=== PATIENT | male | born 1955 | race Caucasian/White ===

== ENCOUNTER 2019-01-26 20:32 | Emergency (ER) | payer BC ==
[~2019-01-26] VITALS: Ht 182.8 cm; Wt 94.0 kg
[2019-01-26] MEDS ORDERED: KETOROLAC 30 MG/ML VIAL ONE (20:41)
[2019-01-26] MEDS ORDERED: ONDANSETRON 4 MG/2 ML (SDV) Z0FRAN ONE (20:41)
[2019-01-26] MEDS ORDERED: NS IV 1000 ML 1,000 ML ONE (20:41)
[2019-01-26] MEDS ORDERED: KETOROLAC 30 MG/ML VIAL IVP ONE (20:45)
[2019-01-26] MEDS ORDERED: NS IV 1000 ML 1,000 ML IV SCH (20:45)
[2019-01-26] MEDS ORDERED: ONDANSETRON 4 MG/2 ML (SDV) Z0FRAN IVP ONE ×2 (20:45→21:00)
--- NOTE | 2019-01-26 20:46 | ED Abdominal Pain ---
General Stated Complaint: ABD PAIN Source of Information: Patient Exam Limitations: No Limitations History of Present Illness Date Seen by Provider: Jan 26, 2019 Time Seen by Provider: 20:45 Initial Comments to ER with sudden onset left lower quadrant abdominal pain that began about 1-2 hours ago. Timing/Duration: 4-6 Hours Severity/Quality: Severe Location: Suprapubic Radiation: No Radiation Activities at Onset: None Associated Symptoms: Other Allergies and Home Medications Allergies Coded Allergies: No Known Drug Allergies (Unverified , 01/26/19) Patient Home Medication List Home Medication List Reviewed: Yes Review of Systems Review of Systems Constitutional: see HPI EENTM: No Symptoms Reported Respiratory: No Symptoms Reported Cardiovascular: No Symptoms Reported Gastrointestinal: See HPI, Abdominal Pain Genitourinary: No Symptoms Reported Musculoskeletal: no symptoms reported Skin: no symptoms reported Psychiatric/Neurological: No Symptoms Reported Endocrine: No Symptoms Reported Hematologic/Lymphatic: No Symptoms Reported Past Ccuagzl-Ngwkqv-Cmmczs Hx Patient Social History Recent Foreign Travel: No Contact w/Someone Who Travel: No Physical Exam Vital Signs Vital Signs - First Documented 01/26/19 20:37 Temp 34.9 Pulse 66 Resp 18 B/P (MAP) 139/76 (97) Capillary Refill : Height/Weight/BMI Height: '" Weight: lbs. oz. kg; BMI Method: General Appearance: WD/WN, moderate distress (moderate stress related to pain, moaning) Respiratory: normal breath sounds, no respiratory distress, no accessory muscle use Cardiovascular: regular rate, rhythm, no murmur Gastrointestinal: normal bowel sounds, soft, tenderness (suprapubic) Extremities: normal range of motion, non-tender Neurologic/Psychiatric: alert, normal mood/affect, oriented x 3 Skin: cool, diaphoresis, pallor Progress/Results/Core Measures Results/Orders Lab Results Laboratory Tests Test 01/26/19 20:40 Range/Units White Blood Count 13.4 H 4.3-11.0 10^3/uL Red Blood Count 4.58 4.35-5.85 10^6/uL Hemoglobin 14.7 13.3-17.7 G/DL Hematocrit 43 40-54 % Mean Corpuscular Volume 93 80-99 FL Mean Corpuscular Hemoglobin 32 25-34 PG Mean Corpuscular Hemoglobin Concent 35 32-36 G/DL Red Cell Distribution Width 13.2 10.0-14.5 % Platelet Count 323 130-400 10^3/uL Mean Platelet Volume 9.7 7.4-10.4 FL Neutrophils (%) (Auto) 44 42-75 % Lymphocytes (%) (Auto) 38 12-44 % Monocytes (%) (Auto) 12 0-12 % Eosinophils (%) (Auto) 6 0-10 % Basophils (%) (Auto) 1 0-10 % Neutrophils # (Auto) 5.8 1.8-7.8 X 10^3 Lymphocytes # (Auto) 5.1 H 1.0-4.0 X 10^3 Monocytes # (Auto) 1.6 H 0.0-1.0 X 10^3 Eosinophils # (Auto) 0.8 H 0.0-0.3 10^3/uL Basophils # (Auto) 0.1 0.0-0.1 10^3/uL Sodium Level 144 135-145 MMOL/L Potassium Level 3.4 L 3.6-5.0 MMOL/L Chloride Level 105 98-107 MMOL/L Carbon Dioxide Level 24 21-32 MMOL/L Anion Gap 15 H 5-14 MMOL/L Blood Urea Nitrogen 24 H 7-18 MG/DL Creatinine 1.35 H 0.60-1.30 MG/DL Estimat Glomerular Filtration Rate 54 BUN/Creatinine Ratio 18 Glucose Level 129 H 70-105 MG/DL Calcium Level 9.8 8.5-10.1 MG/DL Corrected Calcium 9.6 8.5-10.1 MG/DL Total Bilirubin 0.2 0.1-1.0 MG/DL Aspartate Amino Transf (AST/SGOT) 21 5-34 U/L Alanine Aminotransferase (ALT/SGPT) 26 0-55 U/L Alkaline Phosphatase 82 40-136 U/L Total Protein 6.9 6.4-8.2 GM/DL Albumin 4.2 3.2-4.5 GM/DL My Orders Orders - PRIETO LANDERS [employer] Ondansetron Injection (Zofran Injectio (01/26/19 20:41) Cbc With Automated Diff (01/26/19 20:42) Comprehensive Metabolic Panel (01/26/19 20:42) Ua Culture If Indicated (01/26/19 20:42) Ct Abd/Pelvis Wo(Kidney Stone) (01/26/19 20:42) Ns Iv 1000 Ml (Sodium Chloride 0.9%) (01/26/19 20:45) Ketorolac Injection (Toradol Injection) (01/26/19 20:45) Ondansetron Injection (Zofran Injectio (01/26/19 20:45) Ketorolac Injection (Toradol Injection) (01/26/19 20:41) Ns Iv 1000 Ml (Sodium Chloride 0.9%) (01/26/19 20:41) Abdomen/Kub 1view (01/26/19 20:46) Ondansetron Injection (Zofran Injectio (01/26/19 21:00) Alcohol (01/26/19 21:11) Medications Given in ED Current Medications Medications Dose Ordered Sig/Diana Route Start Time Stop Time Status Last Admin Dose Admin Ketorolac Tromethamine 30 mg ONCE ONCE IVP 01/26/19 20:45 01/26/19 20:46 DC 01/26/19 20:51 30 MG Ondansetron HCl 8 mg ONCE ONCE IVP 01/26/19 21:00 01/26/19 21:01 DC 01/26/19 20:50 8 MG Vital Signs/I&O 01/26/19 20:37 Temp 34.9 Pulse 66 Resp 18 B/P (MAP) 139/76 (97) Diagnostic Imaging Diagonstic Imaging: CT Comments NAME: BENJAMIN NESS [facility] REC#: [id number] PT STATUS: REG ER : 1955 PHYSICIAN: PRIETO LANDERS APRN ADMIT DATE: 01/26/19/ER Draft Date of Exam:01/26/19 CT ABD/PELVIS WO(KIDNEY STONE) INDICATION: Left flank pain. CT abdomen and pelvis obtained without IV contrast. There is no previous study for comparison. Visualized portions of the lung bases show dependent atelectatic changes. There is no pleural fluid collection or free intraperitoneal air. The liver shows no focal lesions. Gallbladder appears normal. The spleen, adrenals, and pancreas are normal. Right kidney shows a small intrarenal stone in the midpole. There is no right ureteral stone. There appear to be some parapelvic cysts in the right kidney. On the left side, there is perinephric edema with hydronephrosis and hydroureter down to the level of a tiny 1 to 2 mm stone at the left UVJ. There are no intrarenal calculi visualized on the left side. There may be a relative UPJ obstruction on the left side as the left renal pelvis is dilated out of proportion to the ureter. There is no retroperitoneal mass or adenopathy. There is no ascites or abnormal fluid collection. Visualized bowel loops show no sign of obstruction or ileus. There is no pelvic mass. IMPRESSION: On the left side, there is perinephric edema with hydronephrosis and hydroureter, secondary to a tiny 1 to 2 mm stone at the left UVJ. There may be a relative UPJ obstruction on the left side. There is a small nonocclusive stone in the right kidney. There appear to be parapelvic cysts in the right kidney. 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 All weve given him his Toradol Zofran and fluids. Impression Primary Impression: Left ureteral stone Disposition: 01 HOME, SELF-CARE Condition: Improved Departure-Patient Inst. Decision time for Depature: 21:19 Referrals: NO,LOCAL PHYSICIAN (PCP/Family) Primary Care Physician Patient Instructions: Kidney Stones in Adults Add. Discharge Instructions: 1. Pain medication as directed 2. Call your doctor for follow-up later this week. Return to ER for any fevers intolerable pain or other concerns. Scripts Hydrocodone Bit/Acetaminophen (Hydrocodone/Acetaminophen 5/325mg Tablet) 1 Tab Tab 1 EACH PO Q4-6HR PRN for PAIN-MODERATE MDD 10 for 3 Days, #10 TAB Prov: PRIETO LANDERS [employer] 01/26/19 Tamsulosin HCl (Flomax) 0.4 Mg Cap 0.4 MG PO DAILY, #14 CAP Prov: PRIETO LANDERS [employer] 01/26/19 PRIETO LANDERS [employer] Jan 26, 2019 20:46
[2019-01-26 20:52] LABS: BASOPHILS # (AUTO) 0.1 10^3/uL (0.0-0.1); BASOPHILS % (AUTO) 1 % (0-10); EOSINOPHILS # (AUTO) 0.8 10^3/uL (0.0-0.3); EOSINOPHILS % (AUTO) 6 % (0-10); HEMATOCRIT 43 % (40-54); HEMOGLOBIN 14.7 G/DL (13.3-17.7); LYMPHOCYTES # (AUTO) 5.1 X 10^3 (1.0-4.0); LYMPHOCYTES % (AUTO) 38 % (12-44); MEAN CORPUSCULAR HEMOGLOBIN 32 PG (25-34); MEAN CORPUSCULAR HGB CONC 35 G/DL (32-36); MEAN CORPUSCULAR VOLUME 93 FL (80-99); MEAN PLATELET VOLUME 9.7 FL (7.4-10.4); MONOCYTES # (AUTO) 1.6 X 10^3 (0.0-1.0); MONOCYTES % (AUTO) 12 % (0-12); NEUTROPHILS # (AUTO) 5.8 X 10^3 (1.8-7.8); NEUTROPHILS % (AUTO) 44 % (42-75); PLATELET COUNT 323 10^3/uL (130-400); RED CELL DISTRIBUTION WIDTH 13.2 % (10.0-14.5); WHITE BLOOD COUNT 13.4 10^3/uL (4.3-11.0)
[2019-01-26 21:08] LABS: ALBUMIN 4.2 GM/DL (3.2-4.5); BILIRUBIN,TOTAL 0.2 MG/DL (0.1-1.0); CALCIUM 9.8 MG/DL (8.5-10.1); CREATININE SERUM 1.35 MG/DL (0.60-1.30); POTASSIUM 3.4 MMOL/L (3.6-5.0); TOTAL PROTEIN 6.9 GM/DL (6.4-8.2)
--- NOTE | 2019-01-26 21:13 | Diagnostic Imaging Report ---
INDICATION: Left flank pain EXAM: KUB obtained at 09:03 hours p.m. FINDINGS: The abdominal bowel gas pattern is unremarkable. There are no overt radiopaque calculi over the renal shadows. There are phleboliths in the pelvis. The tiny left UVJ stone seen on CT is not well appreciated on this study. IMPRESSION: Unremarkable bowel gas pattern. Phlebolith in the pelvis. Tiny left UVJ stone seen on CT is not well seen on this study. Dictated by: Dictated on workstation # [id number]
--- NOTE | 2019-01-26 21:14 | Diagnostic Imaging Report ---
INDICATION: Left flank pain. CT abdomen and pelvis obtained without IV contrast. There is no previous study for comparison. Visualized portions of the lung bases show dependent atelectatic changes. There is no pleural fluid collection or free intraperitoneal air. The liver shows no focal lesions. Gallbladder appears normal. The spleen, adrenals, and pancreas are normal. Right kidney shows a small intrarenal stone in the midpole. There is no right ureteral stone. There appear to be some parapelvic cysts in the right kidney. On the left side, there is perinephric edema with hydronephrosis and hydroureter down to the level of a tiny 1 to 2 mm stone at the left UVJ. There are no intrarenal calculi visualized on the left side. There may be a relative UPJ obstruction on the left side as the left renal pelvis is dilated out of proportion to the ureter. There is no retroperitoneal mass or adenopathy. There is no ascites or abnormal fluid collection. Visualized bowel loops show no sign of obstruction or ileus. There is no pelvic mass. IMPRESSION: On the left side, there is perinephric edema with hydronephrosis and hydroureter, secondary to a tiny 1 to 2 mm stone at the left UVJ. There may be a relative UPJ obstruction on the left side. There is a small nonocclusive stone in the right kidney. There appear to be parapelvic cysts in the right kidney. Dictated by: Dictated on workstation # [id number]
[2019-01-26] MEDS ORDERED: ACHD5005 PO (21:20)
[2019-01-26] MEDS ORDERED: TAMS0.4C98 PO (21:20)
[2019-01-26] MEDS ORDERED: RX-HYDROCODONE/APAP 5/325 MG #4 TAB PK PO PRN (21:30)
[2019-01-26 21:44] LABS: BILIRUBIN,URINE NEGATIVE (NEGATIVE); CLARITY,URINE CLEAR; COLOR,URINE YELLOW; GLUCOSE, URINE (UA) NEGATIVE (NEGATIVE); KETONES,URINE 1+ (NEGATIVE); LEUKOCYTE ESTERASE ,URINE NEGATIVE (NEGATIVE); NITRITE,URINE NEGATIVE (NEGATIVE); PH,URINE 6.5 (5-9); PROTEIN,URINE NEGATIVE (NEGATIVE); UROBILINOGEN,URINE NORMAL (NORMAL)
[2019-01-26 21:52] LABS: BACTERIA,URINE NEGATIVE /HPF; WBC,URINE RARE /HPF
[2019-01-26 21:53] LABS: SQUAMOUS EPITHELIAL CELL,UR RARE /HPF
[2019-01-26 22:07] VITALS: BP 128/67
== END 2019-01-26 22:08 | disposition home or self-care (01) ==
LOC: EDUNIT# 20:32 → ER 20:34
DX: N13.2 Hydronephrosis with renal and ureteral calculous obstruction (principal)
CPT/HCPCS: 36415; 74018; 74176; 80053; 80320; 81000; 85025